=== PATIENT | male | born 1985 | race Caucasian/White ===

== ENCOUNTER 2018-11-21 08:32 | Emergency (ER) | payer MEDICAID ==
[~2018-11-21] VITALS: Ht 175.3 cm; Wt 71.6 kg
[2018-11-21 08:58] VITALS: BP 126/76
== END 2018-11-21 10:14 | disposition home or self-care (01) ==
LOC: ER 08:32
DX: G40.909 Epilepsy, unspecified, not intractable, without status epilepticus (principal); Z88.8 Allergy status to other drugs, medicaments and biological substances
CPT/HCPCS: 99284

== ENCOUNTER 2018-11-21 10:30 | Outpatient (CLI) | payer MEDICAID | END 2018-11-21 23:59 | disposition home or self-care (01) | LOC: RAD 10:30 | DX: Z72.820 Sleep deprivation (principal); R56.9 Unspecified convulsions | CPT/HCPCS: 95819 ==

== ENCOUNTER 2020-07-09 14:03 | Inpatient (IN) | payer MEDICAID ==
[2020-07-09] VITALS (8 sets, daily range): BP systolic 100–136; BP diastolic 65–80
[~2020-07-09] VITALS: Ht 177.8 cm; Wt 84.5 kg
--- NOTE | 2020-07-09 16:17 | NUR ---
Pt arrived with flight RNs via gurney, simple face mask in place at 10 L/min, pt RR 32-36 bpm. SpO2 98%. Pt in sinus rhythm.
[2020-07-09] MEDS ORDERED: potassium CL 10mEq/100ml bag 100 ML IV PRN ×2 (16:30)
[2020-07-09] MEDS ORDERED: acetaminophen 325mg tablet PO PRN ×2 (16:30)
[2020-07-09] MEDS ORDERED: magnesium hydroxide 30ml (MOM) UD suspension PO PRN (16:30)
[2020-07-09] MEDS ORDERED: morphine 2 MG/ML inj. syringe IV PRN (16:30)
[2020-07-09] MEDS ORDERED: HYDROcodone/acetaminophen 10/325mg tab PO PRN (16:30)
[2020-07-09] MEDS ORDERED: morphine 4 MG/ML inj SYRINge IV PRN (16:30)
[2020-07-09] MEDS ORDERED: ondansetron/PF 4mg/2ml inj IV PRN (16:30)
[2020-07-09] MEDS ORDERED: METO100T14 PO ×2 (17:25→18:22)
[2020-07-09] MEDS ORDERED: BENZ1TAB7 PO ×2 (17:30→18:22)
[2020-07-09] MEDS ORDERED: PARO10TA85 PO (17:30)
[2020-07-09] MEDS ORDERED: TRAZ-251 PO ×2 (17:30→18:24)
[2020-07-09] MEDS ORDERED: PHEN100C12 PO ×4 (17:46→18:24)
[2020-07-09] MEDS ORDERED: DIVA-74 PO ×3 (17:46→18:22)
[2020-07-09] MEDS ORDERED: MAGN400C PO (17:46)
[2020-07-09] MEDS ORDERED: RISP1TAB98 PO ×2 (17:46→18:24)
[2020-07-09] MEDS ORDERED: CLON-529 PO (17:46)
[2020-07-09] MEDS ORDERED: LORA2ORA PO ×2 (17:46→18:28)
[2020-07-09] MEDS ORDERED: LEVE500T PO ×2 (17:46→18:22)
[2020-07-09] MEDS ORDERED: VAL5T PO (17:46)
[2020-07-09] MEDS ORDERED: PANT-47 PO (17:46)
[2020-07-09] MEDS ORDERED: TOPI200T16 PO ×2 (17:46→18:25)
[2020-07-09 17:56] LABS: BASOPHILS % (AUTO) 0.2 % (0-1); EOSINOPHILS % (AUTO) 0 % (0-6); HEMATOCRIT 37.7 % (42.0-52.0); HEMOGLOBIN 12.9 g/dl (14.0-17.9); LYMPHOCYTES # (AUTO) 1.5 X10'3 (1.1-4.8); LYMPHOCYTES % (AUTO) 13.8 % (21-51); MEAN CORPUSCULAR HEMOGLOBIN 34.1 PG (27.0-31.0); MEAN CORPUSCULAR HGB CONC 34.3 g/dL (33.0-36.5); MEAN CORPUSCULAR VOLUME 99.4 FL (78-98); MEAN PLATELET VOLUME 9.2 FL (7.4-10.4); MONOCYTES # (AUTO) 1.2 X10'3 (0-0.9); MONOCYTES % (AUTO) 11.3 % (2-12); NEUTROPHILS # (AUTO) 8.2 X10'3 (1.8-7.7); NEUTROPHILS % (AUTO) 74.7 % (42-75); PLATELET COUNT 183 X10'3 (140-440); RED BLOOD COUNT 3.79 X10'6 (4.70-6.10); RED CELL DISTRIBUTION WIDTH 13.7 % (11.5-14.5)
[2020-07-09 17:57] LABS: PLATELET COUNT 183 X10'3 (140-440)
[2020-07-09 18:10] LABS: ALANINE AMINOTRANSFERASE 30 U/L (12-78); ALBUMIN 2.2 G/DL (3.4-5.0); ALBUMIN/GLOBULIN RATIO 0.5 (1.1-1.5); ALKALINE PHOSPHATASE 50 IU/L (46-116); ANION GAP 10 (8-16); ASPARTATE AMINO TRANSFERASE 48 U/L (10-37); BILIRUBIN,TOTAL 0.5 MG/DL (0.1-1.0); BLOOD UREA NITROGEN 10 MG/DL (7-18); BUN/CREATININE RATIO 8.8 (5.4-32.0); C-REACTIVE PROTEIN 21.15 MG/DL (0.0-0.5); CALCIUM 7.6 MG/DL (8.5-10.1); CHLORIDE 112 MMOL/L (99-107); CREATININE 1.13 MG/DL (0.60-1.10); GLUCOSE 93 MG/DL (70-104); MAGNESIUM 2.4 MG/DL (1.5-2.4); PHOSPHORUS 2.6 MG/DL (2.3-4.5); POTASSIUM 3.7 MMOL/L (3.5-5.1); SODIUM 144 MMOL/L (135-145); TOTAL CARBON DIOXIDE 22.1 MMOL/L (24-32); TOTAL PROTEIN 6.8 G/DL (6.4-8.2); eGFR 75 ML/MIN
[2020-07-09 18:11] LABS: D-DIMER 30.05 MG/L FEU (0-0.50); PARTIAL THROMBOPLASTIN TIME 32 SECONDS (22-32)
[2020-07-09] MEDS ORDERED: PARO20TA6 PO (18:16)
[2020-07-09] MEDS ORDERED: DIAZ5TAB5 PO (18:22)
[2020-07-09] MEDS ORDERED: DIVA-51 PO (18:22)
[2020-07-09] MEDS ORDERED: CLON0.3T36 PO (18:22)
[2020-07-09] MEDS ORDERED: MAGN200T5 PO (18:24)
[2020-07-09] MEDS ORDERED: PANT40TA54 PO (18:26)
--- NOTE | 2020-07-09 18:33 | NUR ---
Problems reprioritized. Patient report given, questions answered & plan of care reviewed with LEVON Gould.
--- NOTE | 2020-07-09 18:42 | NUR ---
Patient in room CICU 2016. I have received report from Pedro DOS SANTOS, and had the opportunity to ask questions and assume patient care. Patient is resting in room, mother is at the bedside.
[2020-07-09] MEDS: docusate sod 100mg capsule PO SCH (19:28)
[2020-07-09] MEDS ORDERED: enoxaparin 40mg/0.4ml syringe SUBCUT SCH (20:00)
[2020-07-09] MEDS: CefTRIAXone/D5W-Rocephin 1gm 50 ML IV SCH (20:59)
[2020-07-09] MEDS: normal saline 1000ml 1,000 ML IV SCH (20:59)
--- NOTE | 2020-07-09 22:00 | NUR ---
Problems reprioritized. Patient report given, questions answered & plan of care reviewed with Carlota DOS SANTOS. Patient to be transferred to [facility], awaiting transfer team. Patient stable for transfer.
--- NOTE | 2020-07-09 22:30 | NUR ---
RECEIVED PATIENT FROM ICU INTO ROOM 4006 AND ASSUMED PATIENT CARE. MOTHER NORMAN AT BEDSIDE. EDUCATED HER REGARDING VISITOR POLICY. NOTED PATIENTS MED REC HASN'T BEEN COMPLETED. CALL TO YONI THOMAS AT 2310 WHO STATES HE WOULD TRY TO RECONCILE HIS HOME MEDS TONIGHT.
[2020-07-09] MEDS ORDERED: diazepam 5mg tablet PO PRN (23:10)
[2020-07-10 00:06] LABS: PHENYTOIN (DILANTIN) 5.8 UG/ML (10.0-20.0)
[2020-07-10] MEDS: LORazepam 1 MG tablet PO PRN ×2 (00:06→14:18)
[2020-07-10] MEDS ORDERED: phenytoin sod ER 100mg capsule PO ONE (01:20)
[2020-07-10] MEDS ORDERED: topiramate 100mg tablet PO ONE (01:20)
[2020-07-10] MEDS ORDERED: divalproex sodium 500mg tablet.DR PO ONE (01:20)
[2020-07-10] MEDS ORDERED: levetiracetam 250mg tablet PO ONE (01:20)
[2020-07-10] MEDS ORDERED: traZODone 50mg tablet PO ONE (01:20)
[2020-07-10] MEDS: traZODone 50mg tablet PO SCH ×2 (01:50→21:08)
[2020-07-10] MEDS: topiramate 100mg tablet PO SCH ×2 (01:50→20:51)
[2020-07-10] MEDS: levetiracetam 250mg tablet PO SCH ×2 (01:50→20:49)
[2020-07-10] MEDS: phenytoin sod ER 100mg capsule PO SCH ×3 (01:50→20:49)
[2020-07-10 02:00] VITALS: BP 126/87
--- NOTE | 2020-07-10 02:43 | NUR ---
0045 CALLED INTO PATIENTS ROOM BY MOTHER WHO STATES PT WAS HAVING A SEIZURE. 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 UPON ENTERING ROOM PATIENT WAS HAVING NO SEIZURE ACTIVITY AND WAS NOT POSTICTAL. ADMINISTERED ATIVAN PO. SHE HAD TAKEN TELE MONITOR OFF AND IV TUBING WAS FOUND ON THE FLOOR. ENTERED ROOM WITH SEIZURE MEDICATIONS AT 0140. MOTHER STATES PATIENT HAS HAD APPROXIMATELY 3 SEIZURES. 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 PATIENT NOT POSTICTAL. NOTED PIV WAS OUT OF PATIENTS ARM AND SITTING ON BEDSIDE TABLE. WHEN ASKED WHAT HAPPENED MOTHER STATES "IT FELL OUT DURING ONE OF HIS SEIZURES". ATTEMPTED TWICE TO REPLACE IV WITHOUT SUCCESS. AFTER LEAVING ROOM TELEMETRY CALLED AND SAID PATIENTS HEART RATE WAS IN THE 140'S IN A-FLUTTER RHYTHM. YONI THOMAS CALLED AND NOTIFIED. ORDERED 5MG DOSE IV METOPROLOL. WORKING ON REPLACING IV NOW.
--- NOTE | 2020-07-10 03:48 | NUR ---
UNABLE TO ESTABLISH VASCULAR ACCESS. YONI THOMAS NOTIFIED AND CHANGED IV METOPROLOL DOSE TO PO. ALSO SPOKE ABOUT PATIENTS RESPIRATORY RATE OF 25-35. NO NEW ORDERS. WILL CLOSELY MONITOR.
[2020-07-10] MEDS ORDERED: metoprolol tartrate 50mg tablet PO ONE (03:50)
--- NOTE | 2020-07-10 04:38 | NUR ---
NURSE FROM TELEMETRY UNIT UP TO ATTEMPT TO ESTABLISH IV ACCESS.
[2020-07-10] MEDS: normal saline 1000ml 1,000 ML IV SCH ×2 (05:50→20:52)
[2020-07-10] MEDS: metoprolol tartrate 50mg tablet PO SCH ×2 (06:04→20:51)
[2020-07-10 06:31] LABS: BASOPHILS % (AUTO) 0.2 % (0-1); EOSINOPHILS % (AUTO) 0 % (0-6); HEMATOCRIT 36.7 % (42.0-52.0); HEMOGLOBIN 12.7 g/dl (14.0-17.9); LYMPHOCYTES # (AUTO) 0.8 X10'3 (1.1-4.8); LYMPHOCYTES % (AUTO) 5.6 % (21-51); MEAN CORPUSCULAR HEMOGLOBIN 34.6 PG (27.0-31.0); MEAN CORPUSCULAR HGB CONC 34.7 g/dL (33.0-36.5); MEAN CORPUSCULAR VOLUME 99.9 FL (78-98); MEAN PLATELET VOLUME 9.2 FL (7.4-10.4); MONOCYTES # (AUTO) 1.4 X10'3 (0-0.9); MONOCYTES % (AUTO) 9.6 % (2-12); NEUTROPHILS # (AUTO) 12.1 X10'3 (1.8-7.7); NEUTROPHILS % (AUTO) 84.6 % (42-75); PLATELET COUNT 247 X10'3 (140-440); RED BLOOD COUNT 3.68 X10'6 (4.70-6.10); RED CELL DISTRIBUTION WIDTH 13.3 % (11.5-14.5); WHITE BLOOD COUNT 14.3 X10'3 (4.5-11.0)
[2020-07-10 06:56] LABS: ALANINE AMINOTRANSFERASE 28 U/L (12-78); ALBUMIN 2.3 G/DL (3.4-5.0); ALBUMIN/GLOBULIN RATIO 0.5 (1.1-1.5); ALKALINE PHOSPHATASE 53 IU/L (46-116); ANION GAP 15 (8-16); ASPARTATE AMINO TRANSFERASE 49 U/L (10-37); BILIRUBIN,TOTAL 0.5 MG/DL (0.1-1.0); BLOOD UREA NITROGEN 9 MG/DL (7-18); BUN/CREATININE RATIO 9.7 (5.4-32.0); CALCIUM 8.4 MG/DL (8.5-10.1); CHLORIDE 110 MMOL/L (99-107); CREATININE 0.93 MG/DL (0.60-1.10); D-DIMER > 35.20 MG/L FEU (0-0.50); GLUCOSE 108 MG/DL (70-104); MAGNESIUM 2.2 MG/DL (1.5-2.4); PHOSPHORUS 1.4 MG/DL (2.3-4.5); SODIUM 144 MMOL/L (135-145); TOTAL CARBON DIOXIDE 19.1 MMOL/L (24-32); TOTAL PROTEIN 7.2 G/DL (6.4-8.2); eGFR > 90 ML/MIN
[2020-07-10 07:01] LABS: C-REACTIVE PROTEIN 27.44 MG/DL (0.0-0.5)
[2020-07-10 07:05] LABS: POTASSIUM 2.9 MMOL/L (3.5-5.1)
[2020-07-10 08:00] VITALS: BP 127/92
[2020-07-10] MEDS: PARoxetine 10mg tablet PO SCH (08:00)
[2020-07-10] MEDS: benztropine 1mg tablet PO SCH (08:00)
[2020-07-10] MEDS: magnesium oxide 400mg tablet PO SCH (08:00)
[2020-07-10] MEDS: enoxaparin 80mg/0.8ml syringe SUBCUT SCH ×2 (08:00→20:48)
[2020-07-10] MEDS ORDERED: topiramate 100mg tablet PO SCH (08:00)
[2020-07-10] MEDS: docusate sod 100mg capsule PO SCH ×3 (08:00→20:51)
[2020-07-10] MEDS ORDERED: levetiracetam 250mg tablet PO SCH (08:00)
[2020-07-10] MEDS ORDERED: dexamethasone inj 6 MG in normal saline 100ml IV soln 100 ML IV SCH (08:00)
[2020-07-10] MEDS: pantoprazole 40mg Tablet.DR PO SCH (08:00)
[2020-07-10] MEDS: CefTRIAXone/D5W-Rocephin 1gm 50 ML IV SCH (09:41)
[2020-07-10] MEDS: risperiDONE 0.5mg tablet PO SCH ×2 (09:45→20:50)
[2020-07-10] MEDS: potassium Cl 20 mEq SR tablet PO PRN ×3 (09:46→21:01)
[2020-07-10] MEDS: divalproex 250mg tablet, delayed-release PO SCH ×2 (09:46→20:50)
[2020-07-10] MEDS: cloNIDine 0.1 mg tablet PO SCH ×3 (09:47→20:49)
[2020-07-10] MEDS ORDERED: FLU VACC QS2020-21(6MOS UP)/PF 60 MCG/0.5 ML SYRINGE IMVAC ONE (10:00)
[2020-07-10 11:41] VITALS: BP 134/74
[2020-07-10 17:47] VITALS: BP 125/81
--- NOTE | 2020-07-10 18:40 | NUR ---
Problems reprioritized. Patient report given, questions answered & plan of care reviewed with Madelin DOS SANTOS.
--- NOTE | 2020-07-10 18:41 | NUR ---
Patient in room ORTHO 4006. I have received report from Sara DOS SANTOS and had the opportunity to ask questions and assume patient care.
[2020-07-10] MEDS: lactobacillus rhamnosus 10,000 MMU CELLS/CAPSULE PO SCH (20:51)
[2020-07-10] MEDS: dexamethasone inj 6 MG in normal saline 100ml IV soln 100 ML IV SCH (20:52)
[2020-07-10] MEDS ORDERED: divalproex 250mg tablet, delayed-release PO SCH (21:00)
[2020-07-10] MEDS ORDERED: phenytoin sod ER 100mg capsule PO SCH (21:00)
[2020-07-10] MEDS ORDERED: traZODone 50mg tablet PO SCH (21:00)
[2020-07-10 21:45] VITALS: BP 141/76
--- NOTE | 2020-07-11 06:25 | NUR ---
Problems reprioritized. Patient report given, questions answered & plan of care reviewed with Lakisha DOS SANTOS.
--- NOTE | 2020-07-11 06:42 | NUR ---
Patient in room ORTHO 4006. I have received report from selene DOS SANTOS and had the opportunity to ask questions and assume patient care.
[2020-07-11 07:00] VITALS: BP 104/58
[2020-07-11] MEDS: dexamethasone inj 6 MG in normal saline 100ml IV soln 100 ML IV SCH ×2 (08:25→20:52)
[2020-07-11] MEDS: levetiracetam 250mg tablet PO SCH ×2 (08:25→20:59)
[2020-07-11] MEDS: CefTRIAXone/D5W-Rocephin 1gm 50 ML IV SCH (08:25)
[2020-07-11] MEDS: PARoxetine 10mg tablet PO SCH (08:26)
[2020-07-11] MEDS: cloNIDine 0.1 mg tablet PO SCH ×3 (08:26→21:01)
[2020-07-11] MEDS: benztropine 1mg tablet PO SCH (08:26)
[2020-07-11] MEDS: magnesium oxide 400mg tablet PO SCH (08:26)
[2020-07-11] MEDS: metoprolol tartrate 50mg tablet PO SCH ×2 (08:30→20:58)
[2020-07-11] MEDS: pantoprazole 40mg Tablet.DR PO SCH (08:30)
[2020-07-11] MEDS: phenytoin sod ER 100mg capsule PO SCH ×2 (08:31→20:58)
[2020-07-11] MEDS: divalproex 250mg tablet, delayed-release PO SCH ×2 (08:31→20:57)
[2020-07-11] MEDS: risperiDONE 0.5mg tablet PO SCH ×2 (08:32→20:59)
[2020-07-11] MEDS: lactobacillus rhamnosus 10,000 MMU CELLS/CAPSULE PO SCH ×2 (08:32→20:58)
[2020-07-11] MEDS: topiramate 100mg tablet PO SCH ×2 (08:32→20:59)
[2020-07-11] MEDS: docusate sod 100mg capsule PO SCH ×2 (08:32→20:58)
[2020-07-11] MEDS: enoxaparin 80mg/0.8ml syringe SUBCUT SCH ×2 (08:33→21:00)
[2020-07-11 10:00] VITALS: BP 123/67
[2020-07-11 12:29] LABS: BASOPHILS # (AUTO) 0.1 X10'3 (0-0.2); BASOPHILS % (AUTO) 0.6 % (0-1); EOSINOPHILS % (AUTO) 0.2 % (0-6); HEMATOCRIT 32.4 % (42.0-52.0); HEMOGLOBIN 11.1 g/dl (14.0-17.9); LYMPHOCYTES # (AUTO) 0.9 X10'3 (1.1-4.8); LYMPHOCYTES % (AUTO) 9.1 % (21-51); MEAN CORPUSCULAR HEMOGLOBIN 33.2 PG (27.0-31.0); MEAN CORPUSCULAR HGB CONC 34.1 g/dL (33.0-36.5); MEAN CORPUSCULAR VOLUME 97.4 FL (78-98); MEAN PLATELET VOLUME 8.5 FL (7.4-10.4); MONOCYTES # (AUTO) 1.1 X10'3 (0-0.9); MONOCYTES % (AUTO) 11.5 % (2-12); NEUTROPHILS # (AUTO) 7.5 X10'3 (1.8-7.7); NEUTROPHILS % (AUTO) 78.6 % (42-75); PLATELET COUNT 284 X10'3 (140-440); RED BLOOD COUNT 3.33 X10'6 (4.70-6.10); RED CELL DISTRIBUTION WIDTH 13.4 % (11.5-14.5); WHITE BLOOD COUNT 9.5 X10'3 (4.5-11.0)
[2020-07-11 12:48] LABS: ALANINE AMINOTRANSFERASE 53 U/L (12-78); ALBUMIN 1.8 G/DL (3.4-5.0); ALBUMIN/GLOBULIN RATIO 0.4 (1.1-1.5); ALKALINE PHOSPHATASE 68 IU/L (46-116); ANION GAP 10 (8-16); ASPARTATE AMINO TRANSFERASE 146 U/L (10-37); BILIRUBIN,TOTAL 0.2 MG/DL (0.1-1.0); BLOOD UREA NITROGEN 7 MG/DL (7-18); BUN/CREATININE RATIO 10.3 (5.4-32.0); C-REACTIVE PROTEIN 23.23 MG/DL (0.0-0.5); CALCIUM 7.8 MG/DL (8.5-10.1); CHLORIDE 112 MMOL/L (99-107); CREATININE 0.68 MG/DL (0.60-1.10); GLUCOSE 119 MG/DL (70-104); MAGNESIUM 2.6 MG/DL (1.5-2.4); PHOSPHORUS 1.3 MG/DL (2.3-4.5); POTASSIUM 3.7 MMOL/L (3.5-5.1); SODIUM 142 MMOL/L (135-145); TOTAL CARBON DIOXIDE 20.5 MMOL/L (24-32); TOTAL PROTEIN 6.3 G/DL (6.4-8.2); eGFR > 90 ML/MIN
[2020-07-11 12:51] LABS: TOTAL CELLS COUNTED 100
[2020-07-11 12:52] LABS: PLATELET ESTIMATE NORMAL; POLYCHROMASIA 1+
[2020-07-11 13:19] LABS: D-DIMER > 35.20 MG/L FEU (0-0.50)
[2020-07-11 15:00] VITALS: BP 103/68
--- NOTE | 2020-07-11 15:39 | NUR ---
patient maintains o2 sats on NC @6L. de-sated to 82% when mother got patient up to BR without O2. walked back and re-applied o2 patient 95% with o2@6L. will continue to monitor. no c/o pain.
[2020-07-11] MEDS: normal saline 1000ml 1,000 ML IV SCH (16:02)
--- NOTE | 2020-07-11 16:25 | NUR ---
tele called to say patient was 78% o2. patients finger probe repositioned. patient advised to breathe deeper and slow resp down. patient came up to 97% on 6L following this. mother present.
--- NOTE | 2020-07-11 18:29 | NUR ---
Problems reprioritized. Patient report given, questions answered & plan of care reviewed with Madina DOS SANTOS.
[2020-07-11] MEDS: traZODone 50mg tablet PO SCH (20:58)
[2020-07-11 21:14] VITALS: BP 131/71
[2020-07-12 05:31] VITALS: BP 103/60
--- NOTE | 2020-07-12 06:29 | NUR ---
Patient in room ORTHO 4006. I have received report from Madina RN and had the opportunity to ask questions and assume patient care.
[2020-07-12 07:00] LABS: EOSINOPHILS % (AUTO) 0.4 % (0-6); NEUTROPHILS # (AUTO) 6.1 X10'3 (1.8-7.7); WHITE BLOOD COUNT 9.2 X10'3 (4.5-11.0)
[2020-07-12 07:03] LABS: BASOPHILS # (AUTO) 0.1 X10'3 (0-0.2); BASOPHILS % (AUTO) 0.9 % (0-1); HEMATOCRIT 31.9 % (42.0-52.0); HEMOGLOBIN 11.3 g/dl (14.0-17.9); LYMPHOCYTES # (AUTO) 1.7 X10'3 (1.1-4.8); LYMPHOCYTES % (AUTO) 18.4 % (21-51); MEAN CORPUSCULAR HGB CONC 35.4 g/dL (33.0-36.5); MEAN PLATELET VOLUME 8.3 FL (7.4-10.4); MONOCYTES # (AUTO) 1.2 X10'3 (0-0.9); MONOCYTES % (AUTO) 13.5 % (2-12); NEUTROPHILS % (AUTO) 66.8 % (42-75); PLATELET COUNT 326 X10'3 (140-440); RED BLOOD COUNT 3.22 X10'6 (4.70-6.10); RED CELL DISTRIBUTION WIDTH 13.5 % (11.5-14.5)
[2020-07-12 07:27] LABS: ALANINE AMINOTRANSFERASE 82 U/L (12-78); ALBUMIN 1.8 G/DL (3.4-5.0); ALBUMIN/GLOBULIN RATIO 0.4 (1.1-1.5); ALKALINE PHOSPHATASE 94 IU/L (46-116); ANION GAP 12 (8-16); ASPARTATE AMINO TRANSFERASE 197 U/L (10-37); BILIRUBIN,TOTAL 0.2 MG/DL (0.1-1.0); BLOOD UREA NITROGEN 6 MG/DL (7-18); BUN/CREATININE RATIO 9.5 (5.4-32.0); C-REACTIVE PROTEIN 14.61 MG/DL (0.0-0.5); CALCIUM 7.7 MG/DL (8.5-10.1); CHLORIDE 113 MMOL/L (99-107); CREATININE 0.63 MG/DL (0.60-1.10); GLUCOSE 98 MG/DL (70-104); MAGNESIUM 2.3 MG/DL (1.5-2.4); PHOSPHORUS 2.8 MG/DL (2.3-4.5); POTASSIUM 3.1 MMOL/L (3.5-5.1); SODIUM 144 MMOL/L (135-145); TOTAL CARBON DIOXIDE 18.8 MMOL/L (24-32); TOTAL PROTEIN 6.3 G/DL (6.4-8.2); eGFR > 90 ML/MIN
[2020-07-12 07:46] LABS: PLATELET ESTIMATE NORMAL; POLYCHROMASIA 1+; TOTAL CELLS COUNTED 100
[2020-07-12] MEDS: docusate sod 100mg capsule PO SCH ×2 (08:00→20:00)
[2020-07-12] MEDS: risperiDONE 0.5mg tablet PO SCH ×2 (08:00→21:00)
[2020-07-12] MEDS: pantoprazole 40mg Tablet.DR PO SCH (09:07)
[2020-07-12] MEDS: PARoxetine 10mg tablet PO SCH (09:07)
[2020-07-12] MEDS: LORazepam 1 MG tablet PO PRN ×2 (09:07→13:53)
[2020-07-12] MEDS: benztropine 1mg tablet PO SCH (09:07)
[2020-07-12] MEDS: magnesium oxide 400mg tablet PO SCH (09:07)
[2020-07-12] MEDS: potassium Cl 20 mEq SR tablet PO PRN ×3 (09:08→21:01)
[2020-07-12] MEDS: levetiracetam 250mg tablet PO SCH ×2 (09:08→20:59)
[2020-07-12] MEDS: topiramate 100mg tablet PO SCH ×2 (09:08→20:59)
[2020-07-12] MEDS: metoprolol tartrate 50mg tablet PO SCH ×2 (09:08→20:59)
[2020-07-12] MEDS: lactobacillus rhamnosus 10,000 MMU CELLS/CAPSULE PO SCH ×2 (09:08→20:58)
[2020-07-12] MEDS: cloNIDine 0.1 mg tablet PO SCH ×3 (09:09→21:00)
[2020-07-12] MEDS: enoxaparin 80mg/0.8ml syringe SUBCUT SCH ×2 (09:09→20:58)
[2020-07-12] MEDS: CefTRIAXone/D5W-Rocephin 1gm 50 ML IV SCH (09:09)
[2020-07-12] MEDS: dexamethasone inj 6 MG in normal saline 100ml IV soln 100 ML IV SCH ×2 (09:09→20:58)
[2020-07-12] MEDS: phenytoin sod ER 100mg capsule PO SCH ×2 (09:13→21:00)
[2020-07-12] MEDS: divalproex 250mg tablet, delayed-release PO SCH ×2 (09:13→20:59)
[2020-07-12 10:55] VITALS: BP 120/69
[2020-07-12] MEDS ORDERED: iohexol 350MG/ML 100ml bottle IV ONE (11:48)
--- NOTE | 2020-07-12 12:54 | NUR ---
PAGER ID: [phone] MESSAGE: RE: [phone]. CTA shows Acute bilateral PE's. [place] [id number]
--- NOTE | 2020-07-12 17:09 | NUR ---
PAGER ID: [phone] MESSAGE: RE: [phone]. Mother asking about CTA results. Are you coming back to see pt? Sara [phone]
[2020-07-12 17:15] VITALS: BP 121/75
--- NOTE | 2020-07-12 18:16 | NUR ---
Problems reprioritized. Patient report given, questions answered & plan of care reviewed with Radames sanders.
--- NOTE | 2020-07-12 18:43 | NUR ---
Patient in room ORTHO 4006. I have received report from Sara DOS SANTOS and had the opportunity to ask questions and assume patient care.
--- NOTE | 2020-07-12 19:10 | NUR ---
Pt's mom called to say the pt. was having a seizure. Went to bedside the pt. was staring off into space and would not verbally respond. Which was different from previous interactions. The mother stated that this is what happens when he has seizures at home as well. Diazepam was given per MD orders for seizure activity. The pt. was able to verbally respond within a 10-15 minutes of giving the PRN medication. I will continue to monitor.
[2020-07-12] MEDS: traZODone 50mg tablet PO SCH (20:59)
[2020-07-12 21:10] VITALS: BP 140/87
[2020-07-13 06:00] VITALS: BP 126/89
[2020-07-13 06:10] LABS: BASOPHILS % (AUTO) 0.4 % (0-1); EOSINOPHILS % (AUTO) 0.2 % (0-6); HEMATOCRIT 32.9 % (42.0-52.0); HEMOGLOBIN 11.4 g/dl (14.0-17.9); LYMPHOCYTES % (AUTO) 19.8 % (21-51); MEAN CORPUSCULAR HEMOGLOBIN 34.4 PG (27.0-31.0); MEAN CORPUSCULAR HGB CONC 34.8 g/dL (33.0-36.5); MEAN PLATELET VOLUME 7.8 FL (7.4-10.4); MONOCYTES # (AUTO) 1.5 X10'3 (0-0.9); MONOCYTES % (AUTO) 15.4 % (2-12); NEUTROPHILS # (AUTO) 6.4 X10'3 (1.8-7.7); NEUTROPHILS % (AUTO) 64.2 % (42-75); PLATELET COUNT 371 X10'3 (140-440); RED BLOOD COUNT 3.32 X10'6 (4.70-6.10); RED CELL DISTRIBUTION WIDTH 13.7 % (11.5-14.5)
[2020-07-13 06:14] LABS: ALANINE AMINOTRANSFERASE 81 U/L (12-78); ALBUMIN 1.8 G/DL (3.4-5.0); ALBUMIN/GLOBULIN RATIO 0.4 (1.1-1.5); ALKALINE PHOSPHATASE 95 IU/L (46-116); ANION GAP 12 (8-16); ASPARTATE AMINO TRANSFERASE 113 U/L (10-37); BILIRUBIN,TOTAL 0.2 MG/DL (0.1-1.0); BLOOD UREA NITROGEN 8 MG/DL (7-18); BUN/CREATININE RATIO 13.3 (5.4-32.0); C-REACTIVE PROTEIN 8.94 MG/DL (0.0-0.5); CHLORIDE 112 MMOL/L (99-107); GLUCOSE 91 MG/DL (70-104); MAGNESIUM 2.2 MG/DL (1.5-2.4); PHOSPHORUS 3.8 MG/DL (2.3-4.5); SODIUM 141 MMOL/L (135-145); TOTAL CARBON DIOXIDE 17.4 MMOL/L (24-32); TOTAL PROTEIN 6.4 G/DL (6.4-8.2); eGFR > 90 ML/MIN
--- NOTE | 2020-07-13 06:31 | NUR ---
Problems reprioritized. Patient report given, questions answered & plan of care reviewed with Arabella DOS SANTOS.
[2020-07-13 07:09] LABS: TOTAL CELLS COUNTED 100
[2020-07-13 07:10] LABS: PLATELET ESTIMATE NORMAL; POLYCHROMASIA 1+
[2020-07-13] MEDS: docusate sod 100mg capsule PO SCH (08:00)
[2020-07-13] MEDS: magnesium oxide 400mg tablet PO SCH (08:05)
[2020-07-13] MEDS: PARoxetine 10mg tablet PO SCH (08:05)
[2020-07-13] MEDS: benztropine 1mg tablet PO SCH (08:05)
[2020-07-13] MEDS: risperiDONE 0.5mg tablet PO SCH (08:05)
[2020-07-13] MEDS: divalproex 250mg tablet, delayed-release PO SCH (08:05)
[2020-07-13] MEDS: pantoprazole 40mg Tablet.DR PO SCH (08:06)
[2020-07-13] MEDS: levetiracetam 250mg tablet PO SCH (08:06)
[2020-07-13] MEDS: phenytoin sod ER 100mg capsule PO SCH (08:06)
[2020-07-13] MEDS: cloNIDine 0.1 mg tablet PO SCH ×2 (08:06→13:22)
[2020-07-13] MEDS: topiramate 100mg tablet PO SCH (08:06)
[2020-07-13] MEDS: lactobacillus rhamnosus 10,000 MMU CELLS/CAPSULE PO SCH (08:06)
[2020-07-13] MEDS: enoxaparin 80mg/0.8ml syringe SUBCUT SCH (08:07)
[2020-07-13] MEDS: metoprolol tartrate 50mg tablet PO SCH (08:07)
[2020-07-13] MEDS: CefTRIAXone/D5W-Rocephin 1gm 50 ML IV SCH (08:08)
[2020-07-13] MEDS: dexamethasone inj 6 MG in normal saline 100ml IV soln 100 ML IV SCH (08:08)
--- NOTE | 2020-07-13 09:53 | NUR ---
DM consult: Pt with no PMH of diabetes, no A1c at current or past admits, and BG 91-119 during admit while on a regular diet. DM education not warranted at this time. Pt admit with PNA d/t COVID-19. Patient's PO intake appears to be improving with average 75-100% meeting estimated nutrient needs. LBM 07/12. No nutrition intervention warranted at this time. Will continue to follow. Recommendations: 1) Continue regular diet 2) Monitor need for ONS/additional protein 3) Bowel care per rx 4) Scaled weights per rx Addendum: 07/13/20 at [address] Amended: Links added.
[2020-07-13 10:00] VITALS: BP 120/81
--- NOTE | 2020-07-13 10:26 | NUR ---
O2 Sat at rest on room air:87% If below 89%: Recovery O2 Sat at rest on 5 LPM:92%:95% via nasal cannula (mask/nasal cannula, etc..) No further documentation is necessary. If O2 Sat did not drop below 89% on room air,ambulate patient on room air. O2 Sat while ambulating on room air: % Recovery O2 Sat while ambulating on ___LPM:___% No further documentation is necessary. If patient does not drop below 89% while ambulating, he/she does not qualify for home O2.
[2020-07-13] MEDS ORDERED: DEC4T PO (12:23)
[2020-07-13] MEDS ORDERED: APIX5TAB3 PO (12:23)
[2020-07-13] MEDS: LORazepam 1 MG tablet PO PRN (13:22)
[2020-07-13 16:48] LABS: D-DIMER 21.89 MG/L FEU (0-0.50)
--- NOTE | 2020-07-13 17:09 | NUR ---
Patient ready for d/c, PIV removed, cannula intact. O2 was delievered. Education provided and sent home with patient. All belongings gathered and sent home with patient.
== END 2020-07-13 17:05 | disposition home or self-care (01) | DRG 137 ==
LOC: CICU 2S 16:19 → ORTHO 4S 22:28
PROVIDERS: ADMIT Internal Medicine Critical Care Medicine; ATTEND Internal Medicine
DX: U07.1 COVID-19 (principal); J12.89 Other viral pneumonia; J96.01 Acute respiratory failure with hypoxia; Z87.820 Personal history of traumatic brain injury; Z79.899 Other long term (current) drug therapy; I26.99 Other pulmonary embolism without acute cor pulmonale; E43 Unspecified severe protein-calorie malnutrition; E83.39 Other disorders of phosphorus metabolism; Z68.26 Body mass index [BMI] 26.0-26.9, adult
CPT/HCPCS: 36415; 71045; 71275; 80053; 80185; 83605; 83735; 84100; 84145; 85007; 85025; 85379; 85384; 85610; 85730; 86140; 87081; G0378; J0696; J1100; J1650; J7030; Q9967